=== PATIENT | female | born 1945 | race Caucasian/White ===

== ENCOUNTER 2018-08-13 10:39 | Inpatient (IN) | payer MEDICARE, BC ==
[~2018-08-13] VITALS: Ht 160 cm; Wt 91.3 kg
[2018-08-13 11:07] VITALS: BP 214/72
[2018-08-13 11:22] LABS: HEMATOCRIT 39.7 % (37.0-47.0); HEMOGLOBIN 13.9 gm/dL (12.0-15.0); MCH 32.1 pg (26.0-34.0); MCHC 35.1 g/dL (28.0-37.0); MCV 91.6 fL (80.0-100.0); MPV 6.8 fl. (7.2-11.1); NUCLEATED RBCS 0 /100WBC; PLATELET COUNT* 417 thou/uL (150-400); RBC 4.33 mil/uL (4.20-5.00); WBC 12.9 thou/uL (4.0-11.0)
[2018-08-13 11:32] LABS: CREATININE 0.6 mg/dL (0.6-1.3)
[2018-08-13 11:35] LABS: POTASSIUM 2.7 mmol/L (3.5-5.1)
[2018-08-13 11:43] LABS: ALBUMIN 2.5 g/dL (3.4-5.0); TOTAL BILIRUBIN 0.6 mg/dL (<0.1-1.0); TOTAL PROTEIN 7.1 g/dL (6.4-8.2)
[2018-08-13 12:12] LABS: ABSOLUTE EOSINOPHILS 0.4 thou/uL (0.0-0.7); ABSOLUTE LYMPHOCYTES 0.9 thou/uL (0.8-5.3); ABSOLUTE MONOCYTES 1.2 thou/uL (0.0-1.2); ABSOLUTE NEUTROPHILS 10.4 thou/uL (1.6-8.1); PLATELET ESTIMATE INCREASED
[2018-08-13 13:19] LABS: INFLUENZA A ANTIGEN None Detected (None Detect); INFLUENZA B ANTIGEN None Detected (None Detect)
[2018-08-13 13:23] LABS: URINE BILIRUBIN NEGATIVE (Negative); URINE BLOOD NEGATIVE (Negative); URINE CLARITY CLEAR; URINE COLOR YELLOW; URINE GLUCOSE-RANDOM NEGATIVE (Negative); URINE KETONES 1+ (Negative); URINE LEUKOCYTES-REFLEX NEGATIVE (Negative); URINE NITRITE-REFLEX NEGATIVE (Negative); URINE PROTEIN NEGATIVE (Negative); URINE SPECIFIC GRAVITY <= 1.005 (1.005-1.030); URINE UROBILINOGEN 0.2 E.U./dl (0.2-1.0)
[2018-08-13] MEDS ORDERED: CARBAMAZEPINE200 M5 PO (13:48)
[2018-08-13] MEDS ORDERED: COREG6.25 MG PO (13:49)
[2018-08-13] MEDS ORDERED: PROZAC20 MG PO (13:49)
[2018-08-13] MEDS ORDERED: LIPITOR80 MG PO (13:49)
[2018-08-13] MEDS ORDERED: HYDROCHLOROTHIA25 M2 PO (13:50)
[2018-08-13] MEDS ORDERED: CHOLESTYRAMINE P4 GM PO (13:51)
[2018-08-13] MEDS ORDERED: [UNRECOGNIZED DRUG - OTHER] PO (13:52)
[2018-08-13] MEDS ORDERED: AMLODIPINE-BEN1 EAC5 PO (13:53)
[2018-08-13 15:16] VITALS: BP 173/59
[2018-08-13] MEDS ORDERED: UNICOMPLEX M TA1 TA1 PO (16:06)
[2018-08-13 20:00] VITALS: BP 173/71
[2018-08-14] VITALS: BP 144/63
[2018-08-14 01:48] LABS: URINE BLOOD TRACE (Negative); URINE CLARITY CLEAR; URINE COLOR YELLOW; URINE GLUCOSE-RANDOM NEGATIVE (Negative); URINE LEUKOCYTES NEGATIVE (Negative); URINE NITRITE NEGATIVE (Negative); URINE PROTEIN 2+ (Negative); URINE SPECIFIC GRAVITY >= 1.030 (1.005-1.030); URINE UROBILINOGEN 0.2 E.U./dl (0.2-1.0)
[2018-08-14 01:49] LABS: URINE BILIRUBIN 1+ (Negative); URINE KETONES 3+ (Negative)
[2018-08-14 01:50] LABS: SQUAMOUS 0-3 Few /LPF (0-3)
[2018-08-14 01:51] LABS: BACTERIA >30 Many /HPF (None Seen); CASTS None Seen /LPF (None Seen); ICTOTEST (BILI CONFIRMATORY) Negative (Negative); MUCUS 0-3 Light strn/LPF (None Seen); URINE RBC 3-10 Few /HPF (0-2); URINE WBC 0-5 Rare /HPF (0-5)
[2018-08-14 01:55] LABS: CRYSTALS None Seen /LPF (None Seen)
[2018-08-14 04:00] VITALS: BP 178/60
[2018-08-14 07:42] LABS: ABSOLUTE MONOCYTES 0.8 thou/uL (0.0-1.2); BASOPHILS 0.2 %; HEMATOCRIT 38.2 % (37.0-47.0); HEMOGLOBIN 13.2 gm/dL (12.0-15.0); LYMPHOCYTES 8.4 %; MCH 31.1 pg (26.0-34.0); MCHC 34.5 g/dL (28.0-37.0); MCV 90.4 fL (80.0-100.0); MONOCYTES 6.6 %; MPV 6.7 fl. (7.2-11.1); NUCLEATED RBCS 0 /100WBC; PLATELET COUNT* 468 thou/uL (150-400); POLYS 84.8 %; RBC 4.23 mil/uL (4.20-5.00); RDW-CV 12.9 % (10.5-14.5); WBC 11.8 thou/uL (4.0-11.0)
[2018-08-14 07:52] LABS: CREATININE 0.6 mg/dL (0.6-1.3)
[2018-08-14 08:00] VITALS: BP 174/59
[2018-08-14 12:03] VITALS: BP 178/56
--- NOTE | 2018-08-14 12:43 | EKG ---
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 JEFFREY : 1945 Requested By: Aly Parr Order Number: [id number] MD: Diallo Ambriz Measurements Intervals [place] Rate: 55 P: -32 ME: 287 QRS: -89 QRSD: 153 T: -21 QT: 535 QTc: 512 Interpretive Statements Sinus rhythm Ventricular premature complex Prolonged ME interval Right bundle branch block No previous ECG available for comparison Electronically Signed On 08-14-2018 12:42:58 DYNAMOMETER TESTER by Diallo Ambriz [email or web address] <ELECTRONICALLY SIGNED> By: Diallo Ambriz MD, [facility] 08/14/18 1242 1113 1113 Diallo Ambriz MD, [facility] /EPI
--- NOTE | 2018-08-14 14:33 | 2DMMODE ---
[place] [address] 2 D/M-MODE ECHOCARDIOGRAM Name: BIRDIE CAPPS Room: [address] IN [facility]#: [id number] Admission: 08/13/18 Attend Phys: Sonu Ramírez, Discharge: Date of : 43 Date of Service: 08/14/18 1432 Report #: [id number] THIS REPORT FOR: //name// APPROVED REPORT Study performed: 08/14/2018 11:32:26 EXAM: Comprehensive 2D, Doppler, and color-flow Echocardiogram Patient Location: In-Patient Room #: [facility] BSA: 1.92 HR: 64 bpm BP: 174/59 mmHg Other Information Study Quality: Good Indications Congestive Heart Failure 2D Dimensions IVSd: 14.76 (7-11mm) LVOT Diam: 20.84 (18-24mm) LVDd: 51.98 mm PWd: 12.23 (7-11mm) Ascending Ao: 28.70 (22-36mm) LVDs: 26.49 (25-40mm) Aortic Root: 32.85 mm Volumes Left Atrial Volume (Systole) LA ESV Index: 41.90 mL/m2 Aortic Valve AoV Peak Bahman.: 1.75 m/s AO Peak Gr.: 12.22 mmHg LVOT Max P.90 mmHg AO Mean Gr.: 6.17 mmHg LVOT Mean P.73 mmHg LVOT Max V: 0.99 m/s AO V2 VTI: 39.28 cm LVOT Mean V: 0.81 m/s SAMMY (VTI): 2.16 cm2 LVOT V1 VTI: 24.85 cm AI [place]: 2.61 m/s2 AI PHT: 499.67 ms Mitral Valve E/A Ratio: 0.99 MV Decel. Time: 217.55 [place] [address] 2 D/M-MODE ECHOCARDIOGRAM Name: BIRDIE CAPPS [facility] Room: [address] IN .R.#: [id number] Admission: 08/13/18 Attend Phys: Sonu Ramírez, Discharge: Date of : 43 Date of Service: 08/14/18 1432 Report #: [id number] MV E Max Bahman.: 0.87 m/s MV PHT: 63.09 ms MVA (PHT): 3.49 cm2 TDI E/Lateral E': 8.70 E/Medial E': 8.70 Medial E' Bahman.: 0.10 m/s Lateral E' Bahman.: 0.10 m/s Pulmonary Valve PV Peak Bahman.: 1.56 m/s PV Peak Gr.: 9.71 mmHg Tricuspid Valve RAP Estimate: 5.00 mmHg TR Peak Gr.: 28.66 mmHg RVSP: 33.66 mmHg PA Pressure: 33.66 mmHg Left Ventricle The left ventricle is normal size. There is normal LV segmental wall motion. Mild concentric left ventricular hypertrophy. Left ventricular systolic function is normal. The left ventricular ejection fraction is within the normal range. LVEF is 60-65%. The left ventricular diastolic function is normal. Right Ventricle The right ventricle is normal size. The right ventricular systolic function is normal. Atria Left atrium is mildly dilated. The right atrium size is normal. Aortic Valve Aortic valve is mildly calcified. Mild aortic regurgitation. There is no aortic valvular stenosis. Mitral Valve The mitral valve is normal in structure. Mild mitral regurgitation. No evidence of mitral valve stenosis. Tricuspid Valve The tricuspid valve is normal in structure. Mild tricuspid regurgitation. Pulmonic Valve The pulmonary valve is normal in structure[place] [address] 2 D/M-MODE ECHOCARDIOGRAM Name: BIRDIE CAPPS [facility] Room: [address] IN [facility]#: [id number] Admission: 08/13/18 Attend Phys: Sonu Ramírez, Discharge: Date of : 43 Date of Service: 08/14/18 1432 Report #: [id number] regurgitation. Great Vessels The aortic root is normal in size. IVC is normal in size and collapses >50% with inspiration. Pericardium There is no pericardial effusion. <Conclusion> The left ventricle is normal size. Mild concentric left ventricular hypertrophy. Left ventricular systolic function is normal. The left ventricular ejection fraction is within the normal range. LVEF is 60-65%. The right ventricle is normal size. Left atrium is mildly dilated. Aortic valve is mildly calcified. Mild aortic regurgitation. There is no aortic valvular stenosis. The mitral valve is normal in structure. Mild mitral regurgitation. The tricuspid valve is normal in structure. IVC is normal in size and collapses >50% with inspiration. There is no pericardial effusion. There is normal LV segmental wall motion. <ELECTRONICALLY SIGNED> By: Tenzin Spain MD, FACC 08/14/18 [phone] Tenzin Spain MD, FACC /INF
[2018-08-14 16:08] VITALS: BP 168/60
[2018-08-14 20:00] VITALS: BP 138/44
[2018-08-15] VITALS: BP 182/64
[2018-08-15 04:00] VITALS: BP 154/55
[2018-08-15 05:21] LABS: ABSOLUTE LYMPHOCYTES 1.6 thou/uL (0.8-5.3); ABSOLUTE NEUTROPHILS 8.9 thou/uL (1.6-8.1); BASOPHILS 0.2 %; HEMATOCRIT 36.7 % (37.0-47.0); HEMOGLOBIN 12.9 gm/dL (12.0-15.0); LYMPHOCYTES 13.9 %; MCHC 35.1 g/dL (28.0-37.0); MCV 91.2 fL (80.0-100.0); MONOCYTES 8.7 %; MPV 7.1 fl. (7.2-11.1); NUCLEATED RBCS 0 /100WBC; PLATELET COUNT* 488 thou/uL (150-400); POLYS 77.2 %; RBC 4.02 mil/uL (4.20-5.00); RDW-CV 13.1 % (10.5-14.5); WBC 11.5 thou/uL (4.0-11.0)
[2018-08-15 08:00] VITALS: BP 180/70
--- NOTE | 2018-08-15 09:47 | CON ---
[address] [address] CONSULTATION Name: BIRIDE CAPPS Room: [address] IN M.R.#: [id number] Admission: 08/13/18 Attend Phys: Sonu Ramírez MD Discharge: Date of : 43 Report #: [id number] THIS REPORT FOR: //name// CC: Sonu Riley DATE OF SERVICE: 08/14/2018 HISTORY OF PRESENT ILLNESS: The patient is a pleasant 72-year-old female with a history of pulmonary disease and coronary artery disease status post remote stenting on 3 occasions. She noted a central chest discomfort associated with her prior ischemic syndrome, but that was absent on this admission. She noted dyspnea, cough, which is all worsened since James. There is a history of antecedent pneumonia. PAST MEDICAL HISTORY: Remarkable for coronary artery disease status post stenting, hypertension and hypercholesterolemia. FAMILY HISTORY: Remarkable for father having lung cancer. SOCIAL HISTORY: The patient is . She is a nonsmoker. REVIEW OF SYSTEMS: Remarkable for the following. PULMONARY: She notes dyspnea on exertion with chronic cough. CARDIAC: She denies chest discomfort. PHYSICAL EXAMINATION: GENERAL: Reveals a moderately overweight female with persistent cough. CHEST: Reveals scattered rhonchi and occasional wheeze. No rales are detected. CARDIOVASCULAR: Reveals normal first and second heart sounds with a soft systolic murmur. ABDOMEN: Moderately obese. EXTREMITIES: Satisfactorily perfused with minimal edema. VITAL SIGNS: Blood pressure is 130/80, pulse rate 74. LABORATORY DATA: Remarkable for hemoglobin of 13.2, white blood cell count is elevated at 12,900 and 11,800, platelets 468,000. Sodium 133, potassium up from 2.6-4.0 after repletion, BUN 12, creatinine 0.6. Troponin I minimally increased at 0.11. IMPRESSION: 1. Respiratory infection without radiographic evidence for pneumonia. 2. Coronary artery disease, status post remote stenting. 3. Trivial [place] [address] CONSULTATION Name: BIRDIE CAPPS [facility] Room: [address] IN ..#: [id number] Admission: 08/13/18 Attend Phys: Sonu Ramírez MD Discharge: Date of : 43 Report #: [id number] 4. Weight excess. 5. Hyperlipidemia. 6. Hypertension. RECOMMENDATIONS: Continue current antihypertensive and lipid-lowering therapy. We will review echocardiogram regarding magnitude of structural heart disease at present. In the absence of chest pain with a trivially increased troponin I, I would not proceed with additional workup for ischemic disease at this time. <ELECTRONICALLY SIGNED> By: Tenzin Spain MD, [facility] 08/15/18 0947 1150 [id number] Spain MD, FACC /nt
[2018-08-15] MEDS ORDERED: PROTONIX40 M2 PO (10:23)
[2018-08-15] MEDS ORDERED: VENTOLIN HFA 1818 GM INH (10:26)
[2018-08-15] MEDS ORDERED: AUGMENTIN 875-1 EACH PO (10:28)
[2018-08-15] MEDS ORDERED: TESSALON PERLE100 MG PO (10:29)
[2018-08-15] MEDS ORDERED: PREDNISONE 10 M10 MG PO (10:30)
[2018-08-15 10:52] VITALS: BP 180/70
[2018-08-15 11:39] VITALS: BP 180/70
== END 2018-08-15 11:29 | disposition home or self-care (01) | DRG 177 ==
LOC: M.ERS 10:39 → M.2W 13:52 → M.TBA-ER 13:52 → M.2W 15:33
PROVIDERS: Emergency Medicine Emergency Medical Services; Nurse Practitioner Psychiatric/Mental Health; ADMIT Internal Medicine
DX: J15.6 Pneumonia due to other Gram-negative bacteria (principal); J96.00 Acute respiratory failure, unspecified whether with hypoxia or hypercapnia; R65.10 Systemic inflammatory response syndrome (SIRS) of non-infectious origin without acute organ dysfunction; I10 Essential (primary) hypertension; E86.0 Dehydration; I25.10 Atherosclerotic heart disease of native coronary artery without angina pectoris; E78.5 Hyperlipidemia, unspecified; E87.6 Hypokalemia; E78.00 Pure hypercholesterolemia, unspecified; Z79.899 Other long term (current) drug therapy; Z95.5 Presence of coronary angioplasty implant and graft; Z80.1 Family history of malignant neoplasm of trachea, bronchus and lung

== ENCOUNTER → 2018-12-13 | Outpatient (CLI) | payer MEDICARE, BC ==
[~2018-12-13] MED LIST: AMLODIPINE-BEN1 EAC5 PO; AUGMENTIN 875-1 EACH PO; CARBAMAZEPINE200 M5 PO; CHOLESTYRAMINE P4 GM PO; COREG6.25 MG PO; HYDROCHLOROTHIA25 M2 PO; LIPITOR80 MG PO; PREDNISONE 10 M10 MG PO; PROTONIX40 M2 PO; PROZAC20 MG PO; TESSALON PERLE100 MG PO; UNICOMPLEX M TA1 TA1 PO; VENTOLIN HFA 1818 GM INH; [UNRECOGNIZED DRUG - OTHER] PO
== END ==
LOC: M.RAD 12:24
DX: I51.7 Cardiomegaly (principal)

== ENCOUNTER 2020-09-09 14:46 | Emergency (ER) | payer MEDICARE, BC ==
[~2020-09-09] VITALS: Ht 160 cm; Wt 87.1 kg
[2020-09-09] MEDS ORDERED: COLESTIPOL HCL1 G1 PO (15:09)
[2020-09-09] MEDS ORDERED: FISH OIL 1,0001 EAC9 PO (15:10)
[2020-09-09] MEDS ORDERED: SPIRONOLACTONE50 MG PO (15:11)
[2020-09-09 16:58] VITALS: BP 160/65
== END 2020-09-09 17:07 | disposition home or self-care (01) ==
LOC: M.ERS 14:46
DX: S40.021A Contusion of right upper arm, initial encounter (principal); I10 Essential (primary) hypertension; I48.91 Unspecified atrial fibrillation; E78.5 Hyperlipidemia, unspecified; Z79.899 Other long term (current) drug therapy; W18.39XA Other fall on same level, initial encounter; Y93.89 Activity, other specified; Y92.89 Other specified places as the place of occurrence of the external cause; Y99.8 Other external cause status

== ENCOUNTER → 2020-11-18 | Outpatient (CLI) | payer MEDICARE, BC ==
[~2020-11-18] MED LIST changes: +COLESTIPOL HCL1 G1 PO; +FISH OIL 1,0001 EAC9 PO; +SPIRONOLACTONE50 MG PO
--- NOTE | 2020-11-19 12:54 | 2DMMODE ---
[place] [address] 2 D/M-MODE ECHOCARDIOGRAM Name: GÉNESISBIRDIE SONIA Room: [facility]#: [id number] Admission: 11/18/20 Attend Phys: AIDA Calvert Discharge: Date of : 43 Date of Service: 11/19/20 1254 Report #: [id number] THIS REPORT FOR: cc: Andreina Joseph Tammy RNP Biggs, F. Douglas MD [facility] ~ APPROVED REPORT Study performed: 11/19/2020 10:53:23 EXAM: Comprehensive 2D, Doppler, and color-flow Echocardiogram Patient Location: Out-Patient BSA: 1.90 HR: 35 bpm BP: 130/70 mmHg Other Information Study Quality: Good Indications Atrial Fibrillation Dyspnea 2D Dimensions IVSd: 14.91 (7-11mm) LVOT Diam: 20.71 (18-24mm) LVDd: 42.55 mm PWd: 13.95 (7-11mm) Ascending Ao: 40.48 (22-36mm) LVDs: 27.41 (25-40mm) Aortic Root: 33.22 mm Volumes Left Atrial Volume (Systole) LA ESV Index: 42.70 mL/m2 Aortic Valve AoV Peak Bahman.: 1.58 m/s AO Peak Gr.: 9.99 mmHg LVOT Max P.64 mmHg AO Mean Gr.: 4.99 mmHg LVOT Mean P.57 mmHg LVOT Max V: 0.95 m/s AO V2 VTI: 38.24 cm LVOT Mean V: 0.56 m/s SAMMY (VTI): 2.07 cm2 LVOT V1 VTI: 23.50 [place] [address] 2 D/M-MODE ECHOCARDIOGRAM Name: BIRDIE CAPPS SONIA Room: [facility]#: [id number] Admission: 11/18/20 Attend Phys: AIDA Calvert Discharge: Date of : 43 Date of Service: 11/19/20 1254 Report #: [id number] MV Decel. Time: 111.88 ms MV PHT: 32.45 ms MVA (PHT): 6.78 cm2 TDI Medial E' Bahman.: 0.06 m/s Lateral E' Bahman.: 0.10 m/s Pulmonary Valve PV Peak Bahman.: 1.12 m/s PV Peak Gr.: 5.02 mmHg Tricuspid Valve RAP Estimate: 5.00 mmHg TR Peak Gr.: 42.28 mmHg RVSP: 47.28 mmHg PA Pressure: 47.28 mmHg Left Ventricle The left ventricle is normal size. There is normal LV segmental wall motion. Mild concentric left ventricular hypertrophy. Left ventricular systolic function is normal. The left ventricular ejection fraction is within the normal range. LVEF is 55-60%. This study is not technically sufficient to allow evaluation of the LV diastolic function due to atrial fibrillation. Right Ventricle The right ventricle is normal size. The right ventricular systolic function is normal. Atria The left atrium size is normal. The right atrium size is normal. Aortic Valve Mild aortic valve sclerosis. Mild aortic regurgitation. There is no aortic valvular stenosis. Mitral Valve The mitral valve is normal in structure. Mild mitral regurgitation. No evidence of mitral valve stenosis. Tricuspid Valve The tricuspid valve is normal in structure. There is moderate pulmonary hypertension. Pulmonic Valve The pulmonary valve is normal in structure. Trace [place] [address] 2 D/M-MODE ECHOCARDIOGRAM Name: BIRDIE CAPPS [facility] Room: [facility]#: [id number] Admission: 11/18/20 Attend Phys: AIDA Calvert Discharge: Date of : 43 Date of Service: 11/19/20 1254 Report #: [id number] regurgitation. Great Vessels The aortic root is normal in size. IVC is normal in size and collapses >50% with inspiration. Pericardium There is no pericardial effusion. Left pleural effusion. <Conclusion> LVEF is 55-60%. This study is not technically sufficient to allow evaluation of the LV diastolic function due to atrial fibrillation. The left ventricle is normal size. Mild concentric left ventricular hypertrophy. There is normal LV segmental wall motion. Mild aortic valve sclerosis. Mild aortic regurgitation. There is no aortic valvular stenosis. Mild mitral regurgitation. Mild to moderate tricuspid regurgitation. Trace to mild pulmonic regurgitation. Left pleural effusion. There is moderate pulmonary hypertension. <ELECTRONICALLY SIGNED> By: Yadi Melgar MD, FACC 11/19/20 1254 1254 1254 Yadi Melgar MD, FACC /INF
== END ==
LOC: M.ULTRA 13:52
PROVIDERS: ATTEND Registered Nurse Diabetes Educator
DX: M79.89 Other specified soft tissue disorders (principal); R60.9 Edema, unspecified

== ENCOUNTER → 2020-11-19 | Outpatient (CLI) | payer MEDICARE, BC | LOC: M.CRD 10:51 | PROVIDERS: ATTEND Internal Medicine Cardiovascular Disease | DX: I08.8 Other rheumatic multiple valve diseases (principal); I48.19 Other persistent atrial fibrillation; R06.02 Shortness of breath ==